=== PATIENT | male | born 1950 | race Caucasian/White ===

== ENCOUNTER 2024-01-05 06:24 | Observation (INO) ==
--- NOTE | 2023-12-10 12:05 | PAT Medication Instructions ---
Medication Instructions Date of Service December 10, 2023 Home Medications Medication Instructions Recorded telmisartan 80 mg tablet 80 mg PO QPM #60 tabs 08/21/23 telmisartan 80 mg tablet 80 mg PO QPM amlodipine 5 mg tablet 5 mg PO HS cholecalciferol (vitamin D3) 100 mcg (4,000 unit) capsule 4,000 unit PO HS fluticasone propionate 50 mcg/actuation nasal spray,suspension 2 spray intranasal HS Take evening before surgery telmisartan 80 mg tablet 80 mg PO QPM amlodipine 5 mg tablet 5 mg PO HS cholecalciferol (vitamin D3) 100 mcg (4,000 unit) capsule 4,000 unit PO HS fluticasone propionate 50 mcg/actuation nasal spray,suspension 2 spray intranasal HS NOTHING TO EAT OR DRINK AFTER MIDNIGHT Other Notes If you have any questions please call us at [phone] or [phone] or [phone] or [phone]
--- NOTE | 2023-12-21 14:03 | Anesthesiology Consultation ---
Date of Service December 21, 2023 Assessment & Plan (1) Encounter for pre-operative examination: Plan - awaiting confirmed 12/21/23 EKG. - [facility] appointment 12/28/23 in follow-up to repeated abdomen pelvis CT regarding left renal mass. - Outpatient joint assessment: Patient is currently scheduled for inpatient pathway. If re-evaluated and patient/surgeon requests outpatient pathway, patient is not ideal candidate for outpatient joint program from anesthesia standpoint. Chart Review Chart Review: Pending: Refer to Additional Notes / Consult section and Patient seen in Pre Admission Testing Teaching & Discussion Pre-Anesthesia Teaching/Discussion Notes: Instructed NPO after midnight before surgery, except medications with 15 cc of water. Medication instructions provided according to the PAT guidelines. History Surgery Operation Date: 01/05/24 07:00 Proposed Procedures p Right Total Knee Arthroplasty - Pavel Olivier MD Height/Weight Height: 6 ft Weight: 72.8 kg Allergies Allergy/AdvReac Type Severity Reaction Status Date / Time No Known Drug Allergies Allergy Unknown Verified 12/07/23 07:35 Medications Home Medications Medication Instructions Recorded Confirmed Last Taken telmisartan 80 mg tablet 80 mg PO QPM #60 tabs 08/21/23 12/07/23 Unknown amlodipine 5 mg tablet 5 mg PO HS 12/07/23 12/07/23 Unknown cholecalciferol (vitamin D3) 100 4,000 unit PO HS 12/07/23 12/07/23 Unknown mcg (4,000 unit) capsule fluticasone propionate 50 2 spray intranasal HS 12/07/23 12/07/23 Unknown mcg/actuation nasal spray,suspension Past Medical History Medical History (Updated 12/21/23 @ 14:09 by Luli Grant PA-C) Chronic nasal congestion Hearing deficit Hypertension controlled, stable per pt Mild ascending aorta dilatation noted in 2022 per [facility] EMR Renal cell carcinoma new dx>being monitored Patient denies h/o stroke, seizures, heart attack, heart failure, DM, blood clots/DVTs or blood transfusions. Exercise / Class Metabolic Activity II 4-5 Yardwork/Stairs/Walk up hill (denies chest discomfort or shortness of breath with one flight of stairs) Past Family History Family History Father Lung cancer Stroke Brother Hypertension Other No family history of adverse response to anesthesia Denies family history of Ovarian cancer Prostate cancer Diabetes Myocardial infarction Breast cancer Colorectal cancer Past Surgical History Surgical History History of colonoscopy History of ear surgery perforated ear drum repair as a child History of tooth extraction Hx of tonsillectomy 1956 Past Anesthesia History No Hx of Anesthesia Complications and No Family Hx of Anesthesia Complications History of PONV No Hx of PONV and No Hx of Motion Sickness Social History Smoking Status: Current every day smoker Smoking cigarettes per day: 10 cig daily>advised npo Do You Dip or Chew Tobacco: No Hx Alcohol Use: Yes Alcohol type: beer alcohol intake frequency: holidays/special occasions only Hx Substance Use: No substance use type: does not use Last Used Substance Other:: 50 years ago Review of Systems Patient denies chest pain, shortness of breath, dyspnea on exertion, snoring, witnessed apneas, reflux, fever, chills, cough, wheezing, or palpitations. Physical Exam Vital Signs Vitals BP 144/76 P 69 TEMP 98.5 SP02 97% on RA RESP 18 Physical Patient resting comfortably in chair in no acute distress, alert and oriented, responding appropriately throughout visit Full cervical extension range of motion without pain TMD 3.5 finger breadths Mallampati Score 2 Dentition: one implant; denies chipped or loose teeth, caps/crowns, or bridges Lungs: normal respiratory effort. Good air movement, clear throughout to auscultation, no adventitious breath sounds Cardiac: regular rate and rhythm, no murmurs noted Carotid arteries: negative bruit bilat Lab Results Anesthesia Preop Results Results Anesthesia Widget: WBC 9.63 K/ul (4.8-10.8) 12/21/23 Hgb 15.2 g/dl (14.0-18.0) 12/21/23 Hct 45.5 % (42.0-52.0) 12/21/23 Plt 268 K/uL (130-400) 12/21/23 Na 140 mmol/L (136-145) 12/18/23 K 4.1 mmol/L (3.5-5.1) 12/18/23 Cl 105 mmol/L (98-107) 12/18/23 CO2 30 mmol/L (21-32) 12/18/23 BUN 24 mg/dl (6-23) H 12/18/23 Creat 0.85 mg/dl (0.6-1.4) 12/18/23 Glucose Level 75 mg/dl (70-99(Fasting)) 12/18/23 PT 10.8 Seconds (9.0-12.0) 12/21/23 PTT 28 Seconds (21-31) 12/21/23 INR 1.0 (0.9-1.1) 12/21/23 Urine Color Yellow 12/18/23 Urine Appearance Clear (Clear) 12/18/23 Urine pH 6.5 (4.5-7.5) 12/18/23 Urine Specific [place] 1.016 (1.000-1.030) 12/18/23 Urine Protein Negative (Negative) 12/18/23 Urine Glucose (UA) Negative (Negative) 12/18/23 Urine Ketones Negative (Negative) 12/18/23 Urine Blood Trace (Negative) H 12/18/23 Urine Nitrite Negative (Negative) 12/18/23 Urine Bilirubin Negative (Negative) 12/18/23 Urine Urobilinogen Negative (Negative) 12/18/23 Urine Leukocyte Esterase Negative (Negative) 12/18/23 Urine WBC (Auto) 0-5 /hpf (0-5) 12/18/23 Urine RBC (Auto) 3-5 /hpf (0-2) H 12/18/23 Urine Hyaline Casts (Auto) 0-2 /lpf (0-2) 12/18/23 Urine Epithelial Cells (Auto) 0-2 /hpf (0-2) 12/18/23 Urine Bacteria (Auto) None Seen (None Seen) 12/18/23 Blood Type B Positive 12/21/23 Antibody Screen NEGATIVE 12/21/23 Testing Other Testing Chest CT 07/10/23 No acute findings in the chest. Abdomen pelvis CT 12/21/23 1. Stable exophytic 2.1 cm enhancing left renal mass suggestive of renal cell carcinoma. 2. Additional enhancing 11 mm lesion of the superior pole right kidney is also stable from the prior exams and is also suggestive of renal cell carcinoma. 3. No lymphadenopathy or evidence of metastasis. 4. Left nephrolithiasis. 5. Additional incidental findings as above.
--- NOTE | 2024-01-02 08:25 | History & Physical Report ---
Date of Service January 02, 2024 Assessment & Plan (1) Right knee DJD: 73-year-old gentleman with a history of chronic a right knee ACL tear with progressive knee arthritis previous failed conservative measures and would like to proceed with surgical treatment. He has been diagnosed with this recent a renal mass but they have decided to just observe this intermittently with imaging studies every 6 months. Orgran proceed with right knee replacement at his request. The risk meds of this procedure were explained and he understands. He desires to proceed. Plan on discharge to home with [facility] [employer]. His can assist in his care. Will use aspirin for DVT prophylaxis. 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 Discomfort and instability. Primary Care Provider: ELIE Mcdonald . Patient is a 73-year-old gentleman who presents for surgical treatment his right knee. Is got a long history of knee problems dating back to 50 years ago when he injured his ACL. Over the years has developed increased pain discomfort and persistent instability in his knee. Is been through extensive conservative treatment over the years which has become less successful. He is got pain with prolonged walking. His knee gives out intermittently. He gets swelling that tends to wax and wane. He like to proceed with total knee replacement. Of note, patient has recently been diagnosed with a mass around his kidney that he is decided to would just observe over time. He is followed by the urologist and they are getting every 6-month CT scans of. Allergies Allergy/AdvReac Type Severity Reaction Status Date / Time No Known Drug Allergies Allergy Unknown Verified 12/28/23 12:57 Home Medications Medication Instructions Recorded Confirmed Type telmisartan 80 mg tablet 80 mg PO QPM #60 tabs 08/21/23 12/28/23 Rx amlodipine 5 mg tablet 5 mg PO HS 12/07/23 12/28/23 History cholecalciferol (vitamin D3) 100 4,000 unit PO HS 12/07/23 12/28/23 History mcg (4,000 unit) capsule fluticasone propionate 50 2 spray intranasal HS 12/07/23 12/28/23 History mcg/actuation nasal spray,suspension Wheeled Walker #1 ea 12/29/23 Rx Past Med/Surg History Problem List Bilateral renal masses Smoking 1/2 pack a day or less Renal Mass Colon cancer screening Encounter for pre-operative examination Sensorineural hearing loss (SNHL) of both ears ETD (eustachian tube dysfunction) HTN, goal below 130/80 Enlarging skin lesion Hearing impairment 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 Nocturia Medical History Mild ascending aorta dilatation noted in 2022 per [place] EMR Hearing deficit Renal cell carcinoma new dx>being monitored Chronic nasal congestion Hypertension controlled, stable per pt Surgical History History of colonoscopy History of tooth extraction History of ear surgery perforated ear drum repair as a child Hx of tonsillectomy 1956 Family History Father Lung cancer Stroke Brother Hypertension Other No family history of adverse response to anesthesia Denies family history of Ovarian cancer Prostate cancer Diabetes Myocardial infarction Breast cancer Colorectal cancer Social History Smoking Status: Current every day smoker Tobacco Type: Cigarettes Age Started Using Tobacco: 22; packs per day: 0.5; Cigarettes Per Day: 10 cig daily>advised npo; Second Hand Exposure: Yes (in the past); Do You Dip or Chew Tobacco: No; Hx Alcohol Use: Yes Alcohol type: beer Alcohol Intake Frequency: 2-4 x/Month Alcohol Intake Frequency Comment: socially Hx Substance Use: No Preferred Language: Kazakh Communication Ability: Effective Visual Impairment: Limited Hearing Ability: Hard of Hearing Bag Turner Required: No Beliefs That Will Affect Care: None marital status: Current Living Situation: Spouse current occupational status: employed How many Children do You have: 2 Feels Safe at Home: Yes Safety Concerns: Feels Safe At This Time Childhood Exposure to Second-Hand Smoke: Yes Diet: regular caffeine: Yes during the past year weight has: remained stable Dental Care, Regularly: No Physical Activity Frequency: Daily Physical Activity Frequency Comment: walking Seatbelt Use: always Sunscreen Use: Yes Assistive Devices: Glasses and Hearing Aid - Bilateral Review of Systems All systems reviewed & are unremarkable except as noted in HPI & below. Physical Exam . Physical examination reveals a healthy thin elderly male. Looks to be in good health. Examination of the right knee right patient reveals patient ambulates independently. Is got valgus alignment to his knee with his increased with weightbearing. Small knee effusion. Range of motion about 10 degrees short short of full extension to 125 degrees of flexion. A little bit of laxity with Andrea testing. No pivot. No varus or valgus instability. Constitutional WD/WN, vitals as above Neck trachea midline, no thyromegaly Respiratory normal respiratory effort, lungs clear to auscultation Cardiovascular RRR, no murmur, no edema Gastrointestinal (Abdomen) normal bowel sounds, soft, nontender, no hepatosplenomegaly Results & Data Results & Data Laboratory Results . Diagnostic Findings . X-rays of the right knee reviewed. Shows advanced right knee lateral comp artment DJD. Is got complete loss of lateral joint space. Limitus subchondral sclerosis. Small osteophyte formation. 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
[2024-01-05] MEDS ORDERED: BUPIVACAINE 0.25% PF 30 ML VIAL ONE (06:41)
[2024-01-05] MEDS ORDERED: BUPIVACAINE 0.5 % 5 MG/1 ML PF 10ML VIAL ONE (06:41)
--- NOTE | 2024-01-05 06:50 | History & Physical Bridge Note ---
Date of Service January 05, 2024 History & Physical Bridge Note I have examined the patient, reviewed the History & Physical and in the interval since the performance of the History & Physical I have noted the following changes of clinical significance: no changes noted
[2024-01-05] MEDS ORDERED: PROPOFOL IV EMULSION 10 MG/ML 20 ML VIAL IV ONE (07:07)
[2024-01-05] MEDS ORDERED: MIDAZOLAM HCL 1 MG/ML 2ML VIAL ONE (07:08)
[2024-01-05] MEDS ORDERED: fentaNYL citrate PF 100 MCG/2 ML VIAL ONE (07:08)
[2024-01-05] MEDS: CeleBREX 200 MG CAP PO SCH (07:14)
[2024-01-05] MEDS: FAMOTIDINE 20 MG TAB PO SCH (07:14)
[2024-01-05] MEDS: ACETAMINOPHEN 500 MG TAB PO SCH ×2 (07:14→13:49)
[2024-01-05] MEDS: LR 500ML BOLUS, THEN 15ML/HR IV SCH (07:15)
[2024-01-05] MEDS: LR 60ML/HR IV SCH (07:15)
[2024-01-05] MEDS: METOCLOPRAMIDE HCL 10 MG TABLET PO SCH (07:15)
[2024-01-05] MEDS: dexAMETHasone**PF** 10 MG/ML VIAL IV SCH (07:16)
[2024-01-05] MEDS ORDERED: fentaNYL citrate PF 100 MCG/2 ML VIAL IV PRN (08:11)
[2024-01-05] MEDS ORDERED: ONDANSETRON INJ 2 MG/ML 2 ML VIAL IV PRN ×2 (08:11→12:15)
[2024-01-05] MEDS ORDERED: ATROPINE SULFATE 0.1 MG/ML 10ML SYR IV PRN (08:11)
[2024-01-05] MEDS ORDERED: ePHEDrine sulfate 50 MG/ML AMP IV PRN (08:11)
[2024-01-05] MEDS: ceFAZolin 2000MG 2,000 MG/15 ML SYR IV SCH (09:16)
[2024-01-05] MEDS: ROPIV 0.5% 246mg, Ketorolac 30mg, EPINEPHrine 0.5mg in NSS INFIL SCH (09:45)
[2024-01-05] MEDS: ORTHO JOINT ANESTHETIC ONE (09:45)
[2024-01-05] MEDS: TRANEXAMIC ACID 1,000 MG **IV Intra-op IV SCH (10:07)
--- NOTE | 2024-01-05 10:50 | Operative Report ---
PG Post Operative Report Pre & Post Diagnosis Operation Date: 01/05/24 08:50 Pre-Op Diagnosis: Right Knee Degenerative Joint Disease Post-Op Diagnosis: Right Knee Degenerative Joint Disease I identified the patient and participated in the time-out.: Yes Procedure Operation Date: 01/05/24 08:50 Actual Procedures p Right Total Knee Arthroplasty(Right) - Pavel Olivier MD Surgeon Pavel Olivier MD [employer] Wu Solis PA-C Estimated Blood Loss 50 Findings Consistent with Post-Op Diagnosis Operative findings revealed chronic ACL deficiency of the right knee. He did have grade 4 [id number] disease of the medial and lateral compartments. Not really eburnation but is full-thickness cartilage loss. Moderate-sized joint effusion. Specimens Right knee sent for pathology. Anesthesia Type Spinal MAC Complications none Disposition Accompanied Patient To Recovery: No Indications Patient is a 73-year-old gentleman is had a long history of right knee problems. He injured his knee initially about 50 years ago had a chronic ACL deficient knee for many years. Over the years she has developed increased pain discomfort swelling stiffness in the knee and instability that has persisted. He failed conservative measures. He elected to his right total knee arthroplasty. Description of Procedure Operative implants consist of: 1. Biomet size 70 right posterior Byce femoral component. 2. Biomet size 75 tibial tray. 3. 10 mm post stabilized polyethylene insert. 4. 31 x 8 all poly patella. The patient was taken to the operating room, identified, placed on the operating table in the supine position. All contact areas were appropriately padded. IV antibiotics tried by anesthesia team. A spinal anesthetic and abductor canal block had provided in the holding area. A right thigh tent was then placed. The right lower extremity was then prepped and draped in usual sterile fashion. The right leg was elevated exsanguinated with use of an Esmarch and tourniquet placed at 300 mmHg. An anterior approach to the right knee was then performed through a longitudinal incision centered over the patella. Sharp dissection was carried through subcutaneous tissue down the extensor mechanism. Medial parapatellar arthrotomy incision was made. Some subperiosteal dissection was carried out medially. The fat pad was resected from Neath patella tendon. The lateral patellofemoral ligament was released. Patella subluxated laterally and the knee was flexed. The osteophytes taken off the distal femur. The ACL was chronically absent. The PCL was released from the distal femur and the tibia was subluxated anteriorly. The external tibial alignment jig was then placed in the anterior face of the tibia and adjusted 12 mm medially. Proximal tibial cut was made removed by millimeter or 2 (from the medial side. The tibia was sized to a size 75. Attention drawn the femur. The distal femur stem with a sharp drill. Intramedullary canal was suction. A right 5 degree valgus cutting guide was placed. The distal femoral cutting block was pinned in place. The distal femoral cut was made to take an additional 3 mm of bone off distal femur. The knee was brought out in extension I did release some of the IT band in order to equalize extension gap. The knee was then flexed. The femur was sized to a size 70. Size almost exactly 270. T he AP cutting block was pinned parallel to the epicondylar axis which was 4 degrees of external rotation. The anterior cut, anterior chamfer, posterior cut, posterior chamfer cuts were made. The box cutting guide was placed in the just slight lateral and the box cut was made. The knee was flexed. The remnants of the medial and lateral menisci were excised. The osteophyte taken off the posterior aspect the femur. A trial femoral component was placed. The tibial tray was pinned Kaela external rotation and the drill and stem punch were used to create defect in proximal tibia for the tibial tray. The knee was then trialed and the 10 mm insert fit most appropriately. Attention drawn the patella. The patella was cleaned of all soft tissue. Patella thickness measured 24 mm in thickness was cut down to 14. Was sized to a size 31 patella. The lug holes were drilled for 31 patella. The lateral osteophytes removed. Patella button was placed. Knee was taken through range of motion patella tracked nicely with no thumbs test. Attention drawn to placing permanent components. All trial components were removed. Bone plug was placed in the distal femur limit blood loss. A double batch Palacos G cement was mixed. A Biomet Vanguard size 70 right posterior stabilized femoral component, size 75 tibial tray, a 10 mm post stabilized polyethylene insert, and a 31 x 8 all poly patella then cemented in place. Knee was brought out into full extension till cement hardened. Final cement check was then performed. Pericapsular tissues were injected with a total of 100 cc of orthopedic joint mix. The patient did receive 1 g tranexamic acid. The tourniquet was then let down for tourniquet time 53 minutes. Hemostasis assured with electrocautery. Extensor Meclomen closed with combination 1 PDS suture #1 Vicryl suture in a [id number] fashion. Extensor Meclomen checked found to be intact and subcutaneous tissue then closed with 2 Dexon suture in a buried interrupted fashion skin was closed skin kati. Leg was then cleaned and dried and sterile dressing with Xeroform, 4 fours, sterile cast padding, sterile ABD pad, sterile Rupert bandage. The patient was then transferred to the recovery room in stable condition. Patient tolerated procedure well and there were no complications. Wu Solis, my physician food service assistant, was present for the entire procedure. His assistance was essential and required for appropriate patient positioning, prepping and draping, surgical exposure, performing the technical details of the operation, placement the implants, closure of the wound, and placement of the sterile bandage. I attest to the content of the Intraoperative Record and any orders documented therein. Any exceptions are noted below.
--- NOTE | 2024-01-05 11:35 | XRay Report ---
XR knee RT 1 or 2V routine CLINICAL HISTORY: Surgical Post Op TECHNIQUE: 2 views of the right knee were obtained. Comparison: Comparison is made to knee radiographs 10/17/2022 FINDINGS: Patient is status post total knee arthroplasty with expected postsurgical changes including soft tiss ue swelling and subcutaneous emphysema. No periarticular lucency or hardware fracture is seen. IMPRESSION: Expected postoperative appearance status post placement of total knee arthroplasty. ACT 112: Negative or not required by law. Electronically signed by: Regulo Ortega M.D. 01/05/2024 11:34 AM
[2024-01-05] MEDS ORDERED: ALUMINUM/MAGNESIUM SUSP 30 ML UDC PO PRN (12:15)
[2024-01-05] MEDS ORDERED: METOCLOPRAMIDE HCL INJ 5 MG/ML 2 ML VIAL IV PRN (12:15)
[2024-01-05] MEDS ORDERED: TAMSULOSIN HCL 0.4 MG CAP PO PRN (12:15)
[2024-01-05] MEDS ORDERED: NALOXONE HCL 0.4 MG/1 ML VIAL/CARP IV PRN (12:15)
[2024-01-05] MEDS ORDERED: bisacodyL 10 MG SUPP PR PRN (12:15)
[2024-01-05] MEDS ORDERED: HYDROmorphone INJ 0.5 MG/0.5 ML SYR IV PRN (12:15)
[2024-01-05] MEDS ORDERED: MAGNESIUM HYDROXIDE SUSP 30 ML UDC PO PRN (12:15)
[2024-01-05] MEDS: KETOROLAC TROMETHAMINE 15 MG/ML VIAL IV SCH (12:51)
[2024-01-05] MEDS: SODIUM CHLORIDE 0.9% 1,000 ML IV SCH (12:58)
--- NOTE | 2024-01-05 13:12 | Anesthesiology Progress Note ---
Date of Service January 05, 2024 Anesthesia Post Procedure Vital Signs Vital Signs: Temp Pulse Pulse Resp BP Pulse Ox O2 Del Method 01/05/24 13:00 36.3 C L 65 18 129/66 96 Room Air 01/05/24 12:30 36.3 C L 63 18 129/60 97 Room Air 01/05/24 12:00 35.8 C L 62 16 139/66 95 Room Air 01/05/24 12:00 Room Air 01/05/24 11:50 36.0 C L 60 12 132/65 96 Room Air 01/05/24 11:40 60 15 128/66 93 Room Air 01/05/24 11:30 59 L 14 126/66 95 Room Air 01/05/24 11:20 63 15 108/48 L 95 Room Air 01/05/24 11:10 59 L 13 123/61 96 Room Air 01/05/24 11:00 58 L 14 116/62 100 Oxymask 01/05/24 10:50 36.0 C L 58 L 10 L 113/57 L 97 Oxymask 01/05/24 06:45 36.9 C 58 L 20 158/71 H 95 Room Air O2 Flow Rate 01/05/24 13:00 01/05/24 12:30 01/05/24 12:00 01/05/24 12:00 01/05/24 11:50 01/05/24 11:40 01/05/24 11:30 01/05/24 11:20 01/05/24 11:10 01/05/24 11:00 4 01/05/24 10:50 6 01/05/24 06:45 Transfer of Care Handoff Completed per policy Notes Mental Status: alert / awake / arousable Patient Amnestic to Procedure: Yes Nausea / Vomiting: adequately controlled Pain: adequately controlled Airway Patency, RR, SpO2: stable & adequate BP & HR: stable & adequate Hydration State: stable & adequate Neuraxial Anesthesia: was administered and sensory block is resolving Anesthetic Complications: no major complications apparent and Pt Satisfied with anesthetic care
[2024-01-05] MEDS: oxyCODONE HCL IR 5 MG TAB (IMMEDIATE RELEASE) PO PRN (17:00)
[2024-01-05] MEDS: ASCORBIC ACID 500 MG TAB PO SCH (17:01)
[2024-01-05] MEDS: TRANEXAMIC ACID / 0.7% NACL 1,000 MG/100 ML BAG IV SCH (17:01)
[2024-01-05] MEDS: ceFAZolin 1000MG 1,000 MG/7.5 ML SYR IV SCH (17:06)
[2024-01-05] MEDS: amLODIPine BESYLATE 5 MG TAB PO SCH (20:35)
[2024-01-05] MEDS: CHOLECALCIFEROL 25 MCG (1000 UNITS) TAB PO SCH (20:35)
[2024-01-05] MEDS: DOCUSATE SODIUM 100 MG CAP PO SCH (20:35)
[2024-01-05] MEDS: SENNA 8.6 MG TAB PO SCH (20:36)
[2024-01-05] MEDS: ASPIRIN 81 MG ECTAB PO SCH (20:36)
[2024-01-05] MEDS: FLUTICASONE PROPIONATE NA SPR 16 GM BTL NAE SCH (20:36)
[2024-01-05] MEDS: LOSARTAN POTASSIUM 50 MG TAB PO SCH (20:37)
[2024-01-06 06:33] LABS: Hematocrit (blood only) 39.2 % (42.0-52.0); Hemoglobin 13.4 g/dl (14.0-18.0); Mean Corpuscular Hemoglobin 32.1 pg (25.0-34.0); Mean Corpuscular Hgb Conc 34.2 g/dL (32.0-36.0); Mean Platelet Volume 10.2 fL (9.4-12.4); Platelet Count 242 K/uL (130-400); RDW Coefficient of Variation 13.6 % (11.5-14.5); RDW Standard Deviation 46.7 fL (36.4-46.3); Red Blood Count 4.17 M/uL (4.70-6.10); White Blood Count 23.69 K/ul (4.8-10.8)
[2024-01-06 06:35] LABS: BUN Creatinine Ratio 29.9 (10-20); Calcium 8.7 mg/dl (8.6-10.3); Creatinine Clr Calc Pharmacy 86.7 ml/min; Est GFR (African American) 104.3 ml/min; Potassium 3.7 mmol/L (3.5-5.1)
--- NOTE | 2024-01-06 07:31 | Orthopedic Progress Note ---
Date of Service January 06, 2024 Assessment & Plan (1) Status post total right knee replacement: Pain controlled. We discussed his prescriptions that have been sent to his pharmacy dvt prophylaxis: teds, scd's, aspirin bid PT/OT wbat d/c planning: home with home health today if therapy goes well Will discuss with Dr. Soy Camp .73 year old patient POD #1 from right tka. Doing well. Pain controlled. No other complaints at this time. Review of Systems All systems reviewed & are unremarkable except as noted in HPI & below. Physical Exam .alert and oriented. NAD VSS, has had some hypertension intermittently afebrile Right leg: dressing clean, dry, intact. Able to do straight leg raise, range of motion of the knee. Able to dorsiflex/plantarflex. NVI. Calf soft and nontender Results & Data Results & Data Laboratory Results . Diagnostic Findings . PG Care Time/CCT Total # of Minutes Spent Total Time Spent with Patient: Total time spent is greater than 50% in coordination of care (as documented) at patient's floor/unit and/or counseling patient: Coding Level of Care Code 99751 Post Operative Follow-Up Diagnoses Status post total right knee replacement Z96.651
[2024-01-06] MEDS: NICOTINE 14 MG/24 HR PATCH TD SCH (08:22)
[2024-01-06] MEDS: MULTIVITAMIN TAB PO SCH (08:22)
[2024-01-06] MEDS: dexAMETHasone 10 MG in SYRINGE 0 ML IV SCH (08:23)
--- NOTE | 2024-01-07 14:47 | Discharge Summary ---
Date of Service January 07, 2024 Discharge Data Procedures Performed Operation Date: 01/05/24 08:50 Actual Procedures p Right Total Knee Arthroplasty(Right) - Pavel Olivier MD Hospital Course (1) Status post total right knee replacement: This is a 73 year old patient admitted on 01/05/24 and underwent total knee arthroplasty. He tolerated the procedure well and there were no complications. Transferred to the PACU post op and later to the orthopedic floor for further care. He was given ancef for antibiotic prophylaxis. He was also given DALIA stockings, SCDs, and aspirin for DVT prophylaxis. Hemoglobin, hematocrit, and vital signs were monitored during his hospital stay and remained stable. Did not require any blood transfusions. There were no complications during his hospital stay. By post op day #1 the patient was tolerating a regular diet, pain was reasonably controlled with oral pain medicine, and he was participating in physical therapy. On post op day #1 the patient was discharged home and set up with home health care. He was given printed discharge instructions including prescriptions for extra strength tylenol, aspirin, cefadroxil, ketorolac, zofran, oxycodone, senokot, and flomax. Continue physical therapy, weight bearing as tolerated. Continue DALIA stockings. Follow up approximately 2 weeks post op or sooner if there are problems or concerns. Coding Level of Care Code None Diagnoses Status post total right knee replacement Z96.651
== END 2024-01-06 11:16 | disposition home health service (06) ==
LOC: 3E 06:24 → ASU 06:24